=== PATIENT | female | born 1960 | race Caucasian/White ===

== ENCOUNTER 2016-12-10 08:20 | Emergency (ER) | payer OTHER ==
[~2016-12-10] VITALS: Ht 162.6 cm; Wt 73.5 kg
[~2016-12-10 08:20] MED LIST: ALPR0.25 PO; ESOM20CA PO; SENN8.6C5 PO; TRAM50TA92 PO
[2016-12-10 08:28] VITALS: BP 137/70
[2016-12-10] MEDS ORDERED: KETOROLAC TROMETHAMINE INJ 30 MG/ML VIAL ONE (09:05)
[2016-12-10] MEDS ORDERED: KETOROLAC TROMETHAMINE INJ 60 MG/2 ML VIAL IM ONE (09:30)
== END 2016-12-10 09:39 | disposition home or self-care (01) ==
LOC: ER 08:22
DX: M54.5 Low back pain (principal); K21.9 Gastro-esophageal reflux disease without esophagitis; M19.90 Unspecified osteoarthritis, unspecified site; F41.9 Anxiety disorder, unspecified; F17.200 Nicotine dependence, unspecified, uncomplicated; Z90.89 Acquired absence of other organs; Z90.49 Acquired absence of other specified parts of digestive tract; Z90.710 Acquired absence of both cervix and uterus; Z98.51 Tubal ligation status
CPT/HCPCS: 96372; 99283; A4606; J1885; Z7610

== ENCOUNTER 2019-10-14 15:16 | Emergency (ER) | payer OTHER ==
[~2019-10-14] VITALS: Ht 165.1 cm; Wt 60.8 kg
[~2019-10-14 15:16] MED LIST changes: +TRAM50TA PO; -TRAM50TA92 PO
--- NOTE | 2019-10-14 15:34 | NUR ---
AT BEDSIDE FOR EVAL.
[2019-10-14 15:37] VITALS: BP 126/90
[2019-10-14] MEDS ORDERED: KETOROLAC TROMETHAMINE INJ 30 MG/ML VIAL ONE (15:48)
[2019-10-14] MEDS ORDERED: HYDROCODONE/APAP 5/325MG 1 EACH TABLET ONE (15:48)
[2019-10-14] MEDS ORDERED: CYCLOBENZAPRINE 10 MG TABLET ONE (15:49)
[2019-10-14] MEDS ORDERED: KETOROLAC TROMETHAMINE INJ 30 MG/ML VIAL IM ONE (16:00)
[2019-10-14] MEDS ORDERED: HYDROCODONE/APAP 5/325MG 1 EACH TABLET PO ONE (16:00)
[2019-10-14] MEDS ORDERED: CYCLOBENZAPRINE 10 MG TABLET PO ONE (16:00)
--- NOTE | 2019-10-14 16:40 | NUR ---
Patient discharged to home in stable condition. Written and verbal after care instructions given. Patient verbalizes understanding of instruction.
== END 2019-10-14 16:41 | disposition home or self-care (01) ==
LOC: ER 15:22
DX: M54.42 Lumbago with sciatica, left side (principal); K21.9 Gastro-esophageal reflux disease without esophagitis; F41.9 Anxiety disorder, unspecified; M19.90 Unspecified osteoarthritis, unspecified site; E03.9 Hypothyroidism, unspecified; F17.200 Nicotine dependence, unspecified, uncomplicated; Z90.89 Acquired absence of other organs; Z98.890 Other specified postprocedural states; Z90.710 Acquired absence of both cervix and uterus; Z79.899 Other long term (current) drug therapy
CPT/HCPCS: 96372; 99283; J1885

== ENCOUNTER 2020-03-23 18:28 | Emergency (ER) | payer OTHER ==
[~2020-03-23] VITALS: Ht 162.6 cm; Wt 76.3 kg
--- NOTE | 2020-03-23 18:40 | NUR ---
intermittent midsternal chest pressure x 1 month. Patient a/ox4, breathing even and unlabored, no sob noted, needs attended, kept comfortable, attached to the case briefer.
--- NOTE | 2020-03-23 18:48 | NUR ---
dr. ureña at bedside for eval.
--- NOTE | 2020-03-23 18:56 | NUR ---
iv line established, blood drawn and sent to lab.
[2020-03-23 18:57] LABS: BASOPHILS # (AUTO) 0.1 /CMM (0.0-0.2); BASOPHILS % (AUTO) 0.9 % (0.0-2.0); EOSINOPHILS % (AUTO) 0.7 % (0.0-6.0); HEMATOCRIT 40 % (33-45); HEMOGLOBIN 13.3 g/dL (11.5-14.8); LYMPHOCYTES # (AUTO) 2.5 /CMM (0.8-4.8); LYMPHOCYTES % (AUTO) 27.3 % (20.0-44.0); MEAN CORPUSCULAR HGB CONC 33 g/dl (31.0-36.0); MEAN CORPUSCULAR VOLUME 91 fL (82-100); MONOCYTES # (AUTO) 0.6 /CMM (0.1-1.30); NEUTROPHILS # (AUTO) 5.9 /CMM (1.8-8.9); NEUTROPHILS % (AUTO) 64.1 % (43.0-81.0); PLATELET COUNT (AUTO) 248 /CMM (150-450); RED BLOOD CELL COUNT(AUTO) 4.42 MIL/uL (4.0-5.2); WHITE BLOOD COUNT (AUTO) 9.2 K/uL (4.3-11.0)
[2020-03-23 19:09] LABS: CARBON DIOXIDE 26 mmol/L (21-32); CHLORIDE 101 mmol/L (98-107); CREATININE 0.8 mg/dL (0.6-1.3); GLUCOSE 106 mg/dL (74-106); POTASSIUM 3.6 mmol/L (3.5-5.1); SODIUM SERUM 139 mmol/L (136-145); UREA NITROGEN, BLOOD 17 mg/dL (7-18)
[2020-03-23 19:14] LABS: ALANINE AMINOTRANSFERASE 24 U/L (12-78); ALBUMIN 3.9 g/dL (3.4-5.0); ALKALINE PHOSPHATASE 54 U/L (46-116); ASPARTATE AMINOTRANSFERASE 16 U/L (15-37); BILIRUBIN,DIRECT 0.1 mg/dL (0.0-0.2); BILIRUBIN,TOTAL 0.5 mg/dL (0.2-1.0); TOTAL PROTEIN, SERUM 7.4 g/dL (6.4-8.2)
--- NOTE | 2020-03-23 19:55 | NUR ---
IV removed. Catheter intact and site benign. Pressure and 4x4 applied to site. No bleeding noted.
--- NOTE | 2020-03-23 19:55 | NUR ---
Patient discharged to home in stable condition. Written and verbal after care instructions given. Patient verbalizes understanding of instruction. Pt denies pain. VSS. Ambulated with steady gait.
[2020-03-23 19:56] VITALS: BP 128/68
== END 2020-03-23 19:57 | disposition home or self-care (01) ==
LOC: ER 18:33
DX: R07.89 Other chest pain (principal); K21.9 Gastro-esophageal reflux disease without esophagitis; F41.9 Anxiety disorder, unspecified; E03.9 Hypothyroidism, unspecified; F17.200 Nicotine dependence, unspecified, uncomplicated; Z90.89 Acquired absence of other organs; Z98.890 Other specified postprocedural states; Z79.899 Other long term (current) drug therapy
CPT/HCPCS: 36415; 71045-TC; 80048-TC; 80076-TC; 84484-TC; 85025-TC; 85378-TC

== ENCOUNTER 2024-02-21 08:52 | Emergency (ER) | payer MEDICARE, OTHER ==
[~2024-02-21] VITALS: Ht 157.5 cm; Wt 72.6 kg
[2024-02-21] MEDS: IV NS 0.9% 1,000 ML BAG IV ONE (09:26)
[2024-02-21 10:03] LABS: BASOPHILS # (AUTO) 0.1 K/uL (0.0-0.2); BASOPHILS % (AUTO) 1.1 % (0.0-2.0); EOSINOPHILS # (AUTO) 0.1 K/uL (0.0-0.7); EOSINOPHILS % (AUTO) 1.4 % (0.0-6.0); HEMATOCRIT 42 % (33-45); HEMOGLOBIN 13.5 g/dL (11.5-14.8); LYMPHOCYTES # (AUTO) 1.1 K/uL (0.8-4.8); LYMPHOCYTES % (AUTO) 12.2 % (20.0-44.0); MEAN CORPUSCULAR HEMOGLOBIN 30 PG (26.0-33.0); MEAN CORPUSCULAR HGB CONC 33 g/dl (31.0-36.0); MEAN CORPUSCULAR VOLUME 92 fL (82-100); MONOCYTES # (AUTO) 0.4 K/uL (0.1-1.30); MONOCYTES % (AUTO) 4.3 % (2.0-12.0); NEUTROPHILS # (AUTO) 7.6 K/uL (1.8-8.9); PLATELET COUNT (AUTO) 202 K/uL (150-450); RED BLOOD CELL COUNT(AUTO) 4.52 MIL/uL (4.0-5.2); RED CELL DISTRIBUTION WIDTH 14.2 % (11.5-15.0); WHITE BLOOD COUNT (AUTO) 9.4 K/uL (4.3-11.0)
[2024-02-21 10:31] LABS: CALCIUM, SERUM 8.7 mg/dL (8.5-10.1); CREATININE 0.9 mg/dL (0.6-1.3); POTASSIUM 3.6 mmol/L (3.5-5.1)
[2024-02-21 11:05] LABS: APPEARANCE,URINE TURBID (CLEAR); BILIRUBIN,URINE 1+ (NEGATIVE); BLOOD, URINE 3+ Ery/uL (NEGATIVE); COLOR,URINE DARK YELLOW (YELLOW); KETONES,URINE TRACE mg/dL (NEGATIVE); LEUKOCYTE ESTERASE ,URINE 3+ (NEGATIVE); NITRITE, URINE POSITIVE (NEGATIVE); PROTEIN,URINE 3+ mg/dl (NEGATIVE); UGLUCOSE TRACE mg/dL (NEGATIVE)
[2024-02-21] MEDS ORDERED: CEFTRIAXONE 1GM BAG (ER ONLY) 50 ML IV ONE (11:19)
[2024-02-21] MEDS: CEFTRIAXONE 1 G in IV D5W 50 ML IV ONE (11:26)
[2024-02-21 11:35] LABS: ADD URINE CULTURE YES; BACTERIA,URINE 2+ /HPF (None Seen); MUCUS,URINE Moderate /LPF (None Seen); RBC,URINE 21-50 /HPF (0-2); WBC,URINE 51-80 /HPF (0-3)
[2024-02-21] MEDS ORDERED: IBUP-1955 PO (11:40)
[2024-02-21] MEDS ORDERED: PHEN-705 PO (11:40)
[2024-02-21] MEDS ORDERED: CEPH500C2 PO (11:40)
[2024-02-21] MEDS ORDERED: IBUPROFEN 600 MG TABLET ONE (11:50)
[2024-02-21] MEDS: IBUPROFEN 600 MG TABLET PO ONE (11:52)
[2024-02-21 11:54] VITALS: BP 143/82; TEMP 98.7; O2SAT 98
== END 2024-02-21 11:56 | disposition home or self-care (01) ==
LOC: ER 08:58
DX: N30.90 Cystitis, unspecified without hematuria (principal); K21.9 Gastro-esophageal reflux disease without esophagitis; M19.90 Unspecified osteoarthritis, unspecified site; F41.9 Anxiety disorder, unspecified; E03.9 Hypothyroidism, unspecified; F17.200 Nicotine dependence, unspecified, uncomplicated; Z90.89 Acquired absence of other organs; Z90.710 Acquired absence of both cervix and uterus; Z79.899 Other long term (current) drug therapy
CPT/HCPCS: 99284; 96365; 96361; 85025; 80048; 87086; 81001; 36415; J0696 ×2; J7060; J7030

== ENCOUNTER → 2024-04-15 | Emergency (ER) | payer MEDICARE, OTHER ==
[~2024-04-15] VITALS: Ht 162.6 cm; Wt 72.6 kg
[~2024-04-15] MED LIST changes: +CEPH500C2 PO; +IBUP-1955 PO; +NITR100C6 PO; +PHEN-705 PO
[2024-04-15 12:27] LABS: APPEARANCE,URINE Cloudy (CLEAR); BILIRUBIN,URINE MODERATE (NEGATIVE); BLOOD, URINE Large Ery/uL (NEGATIVE); COLOR,URINE BROWN (YELLOW); KETONES,URINE 15 mg/dL (NEGATIVE); LEUKOCYTE ESTERASE ,URINE Large (NEGATIVE); NITRITE, URINE Negative (NEGATIVE); PH,URINE 5.5 (5.0-8.0); PROTEIN,URINE >=300 mg/dl (NEGATIVE); UGLUCOSE Negative (NEGATIVE)
[2024-04-15 13:19] LABS: ADD URINE CULTURE YES; BACTERIA,URINE 1+ /HPF (None Seen); RBC,URINE TOO NUMEROUS TO COUN /HPF (0-2); WBC,URINE TOO NUMEROUS TO COUN /HPF (0-3)
[2024-04-15 13:55] VITALS: BP 123/85; TEMP 98; O2SAT 98
== END | disposition home or self-care (01) ==
LOC: ER 12:17
DX: N30.01 Acute cystitis with hematuria (principal); E03.9 Hypothyroidism, unspecified; F41.9 Anxiety disorder, unspecified; K21.9 Gastro-esophageal reflux disease without esophagitis; F17.200 Nicotine dependence, unspecified, uncomplicated; M19.90 Unspecified osteoarthritis, unspecified site; Z90.49 Acquired absence of other specified parts of digestive tract; Z90.710 Acquired absence of both cervix and uterus
CPT/HCPCS: 81001